=== PATIENT | male | born 1955 | race Caucasian/White ===

== ENCOUNTER → 2022-05-01 08:34 | Outpatient (BNVA) | payer MEDICARE, SELFPAY | PROVIDERS: Visit Provider Internal Medicine Rheumatology | DX: M25.50 Pain in unspecified joint (principal); Z79.899 Other long term (current) drug therapy; Z11.59 Encounter for screening for other viral diseases; Z11.1 Encounter for screening for respiratory tuberculosis; Z87.2 Personal history of diseases of the skin and subcutaneous tissue; Z82.61 Family history of arthritis | CPT/HCPCS: 80076; 82565; 85025; 85651; 86038; 86140; 86200; 86480; 86704; 86803; 87340; 99204 ==

== ENCOUNTER → 2025-07-26 15:24 | Outpatient (BNVA) | payer MEDICARE, SELFPAY | PROVIDERS: PCP Family Medicine; Referring Provider Family Medicine; Visit Provider Internal Medicine Cardiovascular Disease | DX: R00.1 Bradycardia, unspecified (principal); R07.9 Chest pain, unspecified; R00.2 Palpitations; I70.0 Atherosclerosis of aorta; I70.1 Atherosclerosis of renal artery; I10 Essential (primary) hypertension; Z72.0 Tobacco use; Z98.61 Coronary angioplasty status; I25.2 Old myocardial infarction | CPT/HCPCS: 93005; 99204 ==

== ENCOUNTER 2025-07-30 09:07 | Outpatient (CLI) | payer MEDICARE, SELFPAY ==
[2025-07-30 09:47] VITALS: BMI 24.4
--- NOTE | 2025-07-30 09:50 | ECG_ITS ---
[facility] Test Date: 2025-07-30 Pat Name: Josh Miller Department: Room: Gender: Male Parking Control Officer: : 1955 Requested By: Kaiser Presley Order Number: [id number] Tian MD: JAYLYN ARGUELLES Interpretive Statements Lung unchanged pre/post procedure; Intraprocedure shortess of breath; Symptoms resoled by discharge EXERCISE DATA: The patient was exercised by Kavon protocol. Baseline heart rate was 60 beats per minute. Baseline blood pressure was 106/74 millimeters of mercury. Target heart rate was 149 beats per minute. Maximum heart rate achieved was 144, which was 96% of the target heart rate. Maximum blood pressure was 208/87 millimeters of mercury. Total exercise time was 6 minutes. Maximum METs achieved was 7.0, maximum VO2 was 24.5. The reason for ending the test was maximum effort achieved. The patient complained of shortness of breath during the stress test, which then resolved at the end of the test. ELECTROCARDIOGRAM: BASELINE: Showed sinus rhythm, normal axis, interventricular conduction delay, anterior poor R wave progression, no significant ST-T changes at the baseline noted. EXERCISE: At the peak exercise level, significant inferolateral significant ST-T changes suggestive of ischemia noted. RECOVERY: During the recovery period, heart rate dropped appropriately. Inferolateral ST changes persisted in 15-minute of recovery CONCLUSION: 1. Exercise capacity fair 2. Heart rate response was appropriate. 3. Blood pressure response was hypertensive. 4. Symptoms not suggestive of ischemia. 5. Electrocardiogram portion of the stress test was suggestive of ischemia. 6. Nuclear scan will be documented separately. Electronically Signed On 08-12-2025 18:01:07 [employer] by JAYLYN ARGUELLES [email or web address]
--- NOTE | 2025-07-30 09:50 | NMCV_ITS ---
NM bridger perf SPECT r/s* [id number] Josh Miller Age: 70 Gender: M : 1955 Exam Date: 07/30/2025 10:12 Ordering Phys: Kaiser Presley MD ([email or web address]) Technologist: BREANNA Jimenez Exam Location: [facility] Indications: cp STRESS TEST Please see separate stress test report in [facility] for full findings IMAGE PROTOCOL Rest/Stress 1 Exercise Day Radiopharmaceutical Dose (mCi) Administration Site Administered by Rest: Tc-99m 10.9 IV Praveena Woodall, POLICY DIRECTOR Sestamibi Stress:Tc-99m 32.6 IV Praveena Woodall, POLICY DIRECTOR Sestamibi Rest: 30-Jul-2025 45 Discovery 630 Stress: 30-Jul-2025 15 Discovery 630 Radiopharmaceutical was injected at 88 % maximum heart rate. Images obtained in supine and prone position. SPECT RESULTS Technical Quality: Good Raw Data Analysis: Normal Image Corrections: No attenuation or motion correction applied Summed Stress Score: 2 Summed Rest Score: 0 Summed Difference Score: 2 PERFUSION FINDINGS Large area of fixed perfusion defect noted in basal to distal inferior wall surrounded by medium sized area of moderate reversibility. 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
[2025-07-30 11:03] VITALS: BP 162/75; PULSE 71
== END 2025-07-30 09:08 | disposition home or self-care (01) ==
LOC: CDL 09:08
PROVIDERS: PCP Family Medicine; Visit Provider Internal Medicine Cardiovascular Disease
DX: R07.9 Chest pain, unspecified (principal); R93.1 Abnormal findings on diagnostic imaging of heart and coronary circulation; I25.2 Old myocardial infarction; I25.9 Chronic ischemic heart disease, unspecified
CPT/HCPCS: 36415; 78452; 93017; A9500

== ENCOUNTER 2025-08-06 14:48 | Outpatient (CLI) | payer MEDICARE, SELFPAY ==
--- NOTE | 2025-08-06 15:00 | USCV_ITS ---
Paul Josh Age: 70 Gender: M : 1955 Exam Date: 08/06/2025 15:36 Ordering Phys: Kaiser Presley MD ([email or web address]) Technologist: Gorge Bryan Exam Location: [facility] [place] Indication: palpitations BP: 138 / 78 HR: 52 Rhythm: Sinus Technical Quality: Adequate MEASUREMENTS (Male / Female) Normal Values 2D ECHO LV Diastolic Diameter PLAX 5.0 cm 4.2 - 5.9 / 3.9 - 5.3 cm IVS Diastolic Thickness 0.9 cm 0.6 - 1.0 / 0.6 - 0.9 cm IVS Systolic Thickness 1.2 cm LVPW Diastolic Thickness 0.8 cm 0.6 - 1.0 / 0.6 - 0.9 cm LVPW Systolic Thickness 1.5 cm LVOT Diameter 2.0 cm LV Ejection Fraction 2D Teich 56.3 % LV Ejection Fraction MOD 4C 75.3 % LV Ejection Fraction MOD 2C 67.8 % LV Ejection Fraction 2C AL 67.7 % LA Diameter 3.6 cm RA Systolic Volume 4C AL 18.8 ml RA Systolic Volume 4C MOD 18.1 ml LA Sys Volume AL 39.0 cm cubed LA Sys Volume Index AL 19.8 cm cubed/m squared Aorta at Sinotubular Diameter 2.6 cm IVC Diameter 1.5 cm M-MODE LA Ao Ratio MM 1.2 AV Cusp Separation MM 1.3 cm DOPPLER AV Peak Velocity 225.0 cm/s LVOT Peak Velocity 118.0 cm/s AV Area Cont Eq vti 1.9 cm squared AV Area Cont Eq pk 1.6 cm squared MV Peak Velocity 73.0 cm/s MV Area PHT 3.0 cm squared Mitral E to A Ratio 0.8 TR Peak Velocity 254.0 cm/s TR Peak Gradient 25.8 mmHg TR Mean Velocity 200.0 cm/s TR Mean Gradient 17.3 mmHg TR Velocity Time Integral 42.6 cm PV Peak Velocity 97.0 cm/s RV Ejection Time 0.3 s FINDINGS Left Ventricle Normal left ventricular size, systolic function and wall thickness with no regional wall motion abnormality. Left ventricular ejection fraction is 67%. Normal left ventricular diastolic function. Right Ventricle Normal right ventricular size and systolic function. Right Atrium Normal right atrial size. Left Atrium Normal left atrial size. IA Septum Normal appearance of the interatrial septum. Mitral Valve Normal mitral valve structure. No mitral valve stenosis or regurgitation. Aortic Valve Aortic valve not well visualized. Mild aortic valve stenosis. CADY 1.6 cm2. Mild aortic valve regurgitation. Tricuspid Valve Normal tricuspid valve structure. Trace tricuspid valve regurgitation. Normal pulmonary pressure. Pulmonic Valve Normal pulmonic valve structure. No pulmonic valve stenosis or regurgitation. Pericardium No pericardial effusion. Aorta Normal diameter of the aortic root and ascending thoracic aorta. IVC Normal IVC diameter. CONCLUSIONS Normal left ventricular size, systolic function and wall thickness with ejection fraction of 67%. Normal right ventricular size and systolic function. Mild aortic valve stenosis. Mild aortic valve regurgitation Kaiser Presley MD, FACC (Electronically Signed) Final Date: 11 August 2025 17:04 S
== END 2025-08-06 14:49 | disposition home or self-care (01) ==
LOC: RAD 14:49
PROVIDERS: PCP Family Medicine; Visit Provider Internal Medicine Cardiovascular Disease
DX: R00.2 Palpitations (principal); I35.0 Nonrheumatic aortic (valve) stenosis; I35.1 Nonrheumatic aortic (valve) insufficiency
CPT/HCPCS: 93306